=== PATIENT | female | born 1955 | race Caucasian/White ===

== ENCOUNTER → 2016-12-06 | Outpatient (CLI) | payer MEDICARE, OTHER ==
--- NOTE | 2016-12-06 13:41 | MM ---
Reason for exam: additional evaluation requested from prior study. Last mammogram was performed 1 year ago. History: Patient is postmenopausal and has history of breast cancer at age 38. Family history of breast cancer in mother at age 70. Benign right mammotome panel of the right breast, October 20, 2007. Benign right mammotome panel of the right breast, October 11, 2005. Excisional biopsy of the right breast, 2002. Excisional biopsy of the left breast, 2001. Radiation therapy of the left breast, 1993. Lumpectomy of the left breast. Chemotherapy. Taking other hormone for 14 years beginning at age 39. Physical Findings: Nurse did not find any significant physical abnormalities on exam. MG 3D Diag Mammo W/Cad DAVE Bilateral CC and MLO view(s) were taken. Prior study comparison: November 27, 2015, bilateral MG 3d diag mammo w/cad DAVE. October 09, 2014, bilateral MG diagnostic mammo w CAD DAVE. February 19, 2014, right breast US breast RT. The breast tissue is heterogeneously dense. This may lower the sensitivity of mammography. Previous mammotome biopsy within the right breast x2. Post surgical and post therapy changes left breast. Gradually increasing thick secretory calcifications. No significant new findings when compared with previous films. These results were verbally communicated with the patient and result sheet given to the patient on 12/06/16. ASSESSMENT: Benign, BI-RAD 2 RECOMMENDATION: Routine screening mammogram of both breasts in 1 year.
== END | disposition home or self-care (01) ==
LOC: RADMAMWWP 12:43
PROVIDERS: ATTEND Internal Medicine Hematology & Oncology
DX: Z85.3 Personal history of malignant neoplasm of breast (principal)
CPT/HCPCS: G0204; G0279

== ENCOUNTER → 2017-09-15 | Outpatient (CLI) | payer MEDICARE, OTHER ==
[2017-09-15 13:00] LABS: HCT 37.9 % (34.0-46.0); HGB 12.3 gm/dL (11.4-16.0); MCH 27.5 pg (25.0-35.0); MCHC 32.4 g/dL (31.0-37.0); Mean Platelet Volume 8.3; Platelet Count 227 k/uL (150-450); RBC 4.46 m/uL (3.80-5.40); RDW 13.8 % (11.5-15.5); WBC 6.1 k/uL (3.8-10.6)
[2017-09-15 13:27] LABS: Calcium 9.8 mg/dL (8.4-10.2); Potassium 5.2 mmol/L (3.5-5.1)
== END | disposition home or self-care (01) ==
LOC: LABWHC1 12:32
PROVIDERS: ATTEND Internal Medicine Interventional Cardiology
DX: I25.10 Atherosclerotic heart disease of native coronary artery without angina pectoris (principal); I10 Essential (primary) hypertension; E11.9 Type 2 diabetes mellitus without complications
CPT/HCPCS: 36415; 80048; 85027

== ENCOUNTER 2017-09-28 06:08 | Day surgery (SDC) | payer MEDICARE, OTHER ==
[2017-09-23 12:49] VITALS: BMI 29.7
[~2017-09-28 06:08] MED LIST: ALPRAZolam 0.25 MG TAB PO PRN; ALPRAZolam 0.5 MG TAB PO PRN; ASPIRIN 325 MG TAB PO STA; ATORVASTATIN 80 MG TAB PO STA; NITROGLYCERIN SL TABS 0.4 MG TAB SUBLINGUAL PRN; SODIUM CHLORIDE 0.9% 1,000 ML in EMPTY BAG 1 BAG IV ONE
[2017-09-28 06:34] VITALS: RESP 16; TEMP 98.6
[2017-09-28 06:46] LABS: Glucose,Whole Blood 226 mg/dL (75-99)
[2017-09-28] MEDS ORDERED: VERAPAMIL 2.5 MG/ML 2 ML AMP ONE (07:12)
[2017-09-28] MEDS ORDERED: LIDOCAINE 2% INJ 20 MG/ML (20 ML MDV) ONE (07:12)
[2017-09-28] MEDS ORDERED: diphenhydrAMINE 50 MG/ML 1 ML VIAL ONE (07:16)
[2017-09-28] MEDS ORDERED: MIDAZOLAM 2 MG/2 ML VIAL ONE (07:16)
[2017-09-28] MEDS ORDERED: HEPARIN SODIUM 1,000 UN/ML (10ML VL) ONE (07:16)
[2017-09-28] MEDS ORDERED: diphenhydrAMINE 50 MG/ML 1 ML VIAL IVP ONE (07:20)
[2017-09-28] MEDS ORDERED: MIDAZOLAM 2 MG/2 ML VIAL IVP ONE (07:20)
[2017-09-28] MEDS ORDERED: LIDOCAINE 2% INJ 20 MG/ML SQ ONE ×2 (07:35)
[2017-09-28] MEDS ORDERED: NITROGLYCERIN SL TABS 0.4 MG TAB SUBLINGUAL ONE ×2 (07:36→07:37)
[2017-09-28] MEDS: VERAPAMIL SYRINGE (5 MG/10 ML) INTRAARTER ONE ×2 (07:39→07:56)
[2017-09-28] MEDS: NITROGLYCERIN 1000MCG/10ML SYRINGE INTRACORON ONE ×2 (07:47→07:52)
[2017-09-28] MEDS ORDERED: amLODIPine 5 MG TAB ONE (07:56)
[2017-09-28] MEDS ORDERED: IOPAMIDOL-370 100ML BTL INJ ONE (07:56)
[2017-09-28] MEDS ORDERED: amLODIPine 5 MG TAB PO ONE (07:56)
[2017-09-28] MEDS ORDERED: RX INFO: IV CONTRAST WAS GIVEN 1 EACH MISC MISCELLANE PRN (07:59)
[2017-09-28] MEDS ORDERED: SODIUM CHLORIDE 0.9% 1,000 ML IV SCH (08:00)
[2017-09-28] MEDS ORDERED: ACETAMINOPHEN TAB 325 MG TAB ONE (08:09)
[2017-09-28 08:39] LABS: Glucose,Whole Blood 206 mg/dL (75-99)
--- NOTE | 2017-09-28 08:42 | LTR ---
DATE OF SERVICE: 09/28/2017 RE: Mara Newton Dear Dr. Gonzalez; Thank you for the opportunity to participate in the care of Mrs Newton. Please find enclosed my detailed cardiac cath report for your records. Will optimize medical therapy and discharge the patient later on today. Please find enclosed my report for your records. Thank you for your referral and please call for questions. With kindest regards. Sincerely yours, MD RAUDEL Arteaga / IVONNEN: [id number] /
--- NOTE | 2017-09-28 08:42 | CC ---
CARDIAC CATHETERIZATION REPORT DATE OF SERVICE: 09/28/2017 PROCEDURE: Left heart catheterization, coronary angiography. PERFORMED BY: Dr. Alfredo Chaudhary. Moderate conscious sedation time was 22 minutes. Patient's oxygen saturation, hemodynamic, and EKG were monitored closely. She was given a combination of Versed and Benadryl. CLINICAL INFORMATION: Mrs. Mara Newton is a 61-year-old lady with a known history of type 2 diabetes, hypertension, hyperlipidemia with noncritical CAD and a previous cath. Because of symptoms strongly suggestive of angina and known previous CAD of a moderate extent involving the LAD and circumflex, I recommended coronary angiography. She had symptoms with exertional chest discomfort and jaw discomfort. Symptoms were strongly suggestive of angina pectoris. Risks, benefits, options and rationale were explained. PROCEDURE NOTE: Under local anesthesia and strict aseptic precautions, a 6-Latvian introducer was placed in the right radial artery. Using an Ultimate 1 catheter, I performed selective coronary angiography of the left system and a JR 3.5 catheter for right coronary artery and the same catheter was used to check LV pressures. LV gram was not performed. The sheath was taken out and TR band applied as per protocol. Saturation in the fingers of the right hand was more than 95%. CARDIAC CATHETERIZATION FINDINGS: The left ventricular end-diastolic pressure was 22 mmHg without any gradient across the aortic valve. CORONARY ANGIOGRAPHY FINDINGS: 1. LEFT MAIN CORONARY ARTERY: A short patent disease-free vessel that bifurcates into LAD and circumflex. 2. LEFT ANTERIOR DESCENDING CORONARY ARTERY: This is a good caliber vessel that starts off in the proximal portion of a good caliber, gives off a septal branch and diagonal branch and then in the midportion, the caliber decreases with a 30%-35% narrowing. It then gives off a large diagonal branch and then continues after the diagonal branch all the way to the apex. The LAD after the diagonal branch is small in caliber, diffusely diseased with multiple areas of anywhere from 30% to 50% narrowing. These findings are very similar to the previous study from 2007. Maybe some more diffuse disease is noted. The diagonal branch is free of significant disease and also has minor irregularities. The distal half of LAD therefore has diffuse disease but no focal critical areas are noted. The septal branch is free of significant disease. 3. LEFT POSTERIOR CIRCUMFLEX CORONARY ARTERY: A nondominant vessel, gives off a single obtuse marginal that runs laterally, has about a 30% to 40% narrowing. No significant disease and no significant increase in the stenosis compared to the previous study from 2007. 4. :RIGHT CORONARY ARTERY: A dominant vessel, no significant disease, distally bifurcates into a large PLV, smaller PDA, both of which have minor irregularities. No significant disease is noted. RCA is a very dominant vessel. FINAL IMPRESSION: This patient has a right dominant system. Increased filling pressures. There is diffuse disease in the distal half of the left anterior descending artery. Circumflex has 30% to 40% narrowing. There is some progression of disease in the distal half of the left anterior descending artery, but not that significant. RECOMMENDATION: I am recommending aggressive medical therapy with risk factor modification and optimal BP control. I will increase the losartan to losartan HCTZ 100/25 one tablet daily and also check a BMP, CBC in about a week and I will see her in the office on October 06. The right radial site is clean and dry at the time of dictation, and she will be discharged in a few hours. MMODL / IJN: [id number] /
[2017-09-28 11:47] LABS: Glucose,Whole Blood 180 mg/dL (75-99)
[2017-09-28 15:09] VITALS: BP 162/76; PULSE 77
--- NOTE | 2017-09-30 17:38 | CDI ---
Outpatient Documentation Clarification Form Date: 09/30/17 CDS/Public Address Announcer Name: Yue Winston Phone: If any questions, call Katrin Siddiqi [employer]er at [phone] Patient Name: Mara Newton Admit Date: 09/28/17 Discharge Date: 09/28/17 ATTENTION: The [facility] Coding Staff appreciate your assistance in clarifying documentation. Please respond to the clarification below the line at the bottom and electronically sign. The [facility] Coding staff will review the response and follow-up if needed. Please note: Queries are made part of the Legal Health Record. If you have any questions, please contact the Rust [employer]er. Dear Dr. Jose Guadalupe Chaudhary, There is conflicting information on the H&P and operative report. Does the patient type 1 diabetes or type 2 diabetes? Please clarify below. Thank you for your kind consideration. Type 2 Diabetes. MTDD
== END 2017-09-28 15:09 | disposition home or self-care (01) ==
LOC: CATHCVL 06:08
PROVIDERS: ATTEND Internal Medicine Interventional Cardiology
DX: I25.110 Atherosclerotic heart disease of native coronary artery with unstable angina pectoris (principal); E78.00 Pure hypercholesterolemia, unspecified; E11.9 Type 2 diabetes mellitus without complications; I10 Essential (primary) hypertension; E03.9 Hypothyroidism, unspecified; Z82.49 Family history of ischemic heart disease and other diseases of the circulatory system; Z79.82 Long term (current) use of aspirin; Z79.890 Hormone replacement therapy; Z79.4 Long term (current) use of insulin; Z79.51 Long term (current) use of inhaled steroids; Z79.899 Other long term (current) drug therapy; Z88.6 Allergy status to analgesic agent; Z88.5 Allergy status to narcotic agent
CPT/HCPCS: 93458; C1894; J2001; J2250; J1200; Q9967

== ENCOUNTER → 2017-10-05 | Outpatient (CLI) | payer MEDICARE, OTHER ==
[2017-10-05 14:55] LABS: HCT 37.6 % (34.0-46.0); HGB 12.5 gm/dL (11.4-16.0); MCH 27.9 pg (25.0-35.0); MCHC 33.2 g/dL (31.0-37.0); MCV 84.1 fL (80.0-100.0); Platelet Count 244 k/uL (150-450); RBC 4.47 m/uL (3.80-5.40); RDW 13.7 % (11.5-15.5); WBC 6.2 k/uL (3.8-10.6)
[2017-10-05 15:10] LABS: Calcium 9.3 mg/dL (8.4-10.2)
== END | disposition home or self-care (01) ==
LOC: LABWHC1 14:32
PROVIDERS: ATTEND Internal Medicine Interventional Cardiology
DX: E11.9 Type 2 diabetes mellitus without complications (principal); I10 Essential (primary) hypertension; I25.10 Atherosclerotic heart disease of native coronary artery without angina pectoris
CPT/HCPCS: 36415; 80048; 85027

== ENCOUNTER → 2018-01-03 | Outpatient (CLI) | payer MEDICARE, OTHER ==
--- NOTE | 2018-01-04 09:27 | MM ---
Reason for exam: additional evaluation requested from prior study. Last mammogram was performed 1 year and 1 month ago. History: Patient is postmenopausal and has history of breast cancer at age 38. Family history of breast cancer in mother at age 70. Benign right mammotome panel of the right breast, October 20, 2007. Benign right mammotome panel of the right breast, October 11, 2005. Excisional biopsy of the right breast, 2002. Excisional biopsy of the left breast, 2001. Radiation therapy of the left breast, 1993. Lumpectomy of the left breast. Chemotherapy. Taking other hormone for 14 years beginning at age 39. Physical Findings: Nurse did not find any significant physical abnormalities on exam. MG 3D Diag Mammo W/Cad DAVE Bilateral CC and MLO view(s) were taken. Prior study comparison: December 06, 2016, bilateral MG 3d diag mammo w/cad DAVE. November 27, 2015, bilateral MG 3d diag mammo w/cad DAVE. The breast tissue is heterogeneously dense. This may lower the sensitivity of mammography. Finding: There are typically benign coarse calcifications in the left breast. Previous mammotome biopsy in the right breast. No significant changes in finding since December 06, 2016 and November 27, 2015. These results were verbally communicated with the patient and result sheet given to the patient on 01/03/18. ASSESSMENT: Benign, BI-RAD 2 RECOMMENDATION: Routine screening mammogram of both breasts in 1 year.
== END | disposition home or self-care (01) ==
LOC: RADMAMWWP 15:35
PROVIDERS: ATTEND Internal Medicine Hematology & Oncology
DX: Z08 Encounter for follow-up examination after completed treatment for malignant neoplasm (principal); Z85.3 Personal history of malignant neoplasm of breast
CPT/HCPCS: 77066; G0279; 77062

== ENCOUNTER → 2018-02-18 | Outpatient (CLI) | payer MEDICARE, OTHER ==
--- NOTE | 2018-02-19 10:10 | MR ---
EXAMINATION TYPE: MR cervical spine wo con DATE OF EXAM: 02/18/2018 COMPARISON: X-ray 09/25/2015 HISTORY: Neck pain arm pain TECHNIQUE: Multiplanar, multisequence images of the cervical spine were acquired. C2-C3: No evidence for degenerative disc disease. No disc bulge/herniation or protrusion. No Canal stenosis. Foramina are patent bilaterally. C3-C4: Severe degenerative disc disease with broad-based central disc protrusion abutting the anterio r margin of the spinal cord resulting in central canal stenosis. Facet arthropathy noted with mild bi lateral foraminal encroachment greater. C4-C5: Mild degenerative disc disease but there is a broad-based central and left paracentral disc he rniation resulting in mild anterior compression of the spinal cord. Ligamentum flavum hypertrophy is noted and there is mild facet arthropathy and uncovertebral joint hypertrophy with mild bilateral for aminal. C5-C6: Broad-based central disc protrusion resulting in anterior compression of spinal cord and moder ate to severe central stenosis. Facet arthropathy and uncovertebral joint hypertrophy can attribute m oderate to severe bilateral foraminal encroachment. There is severe degenerative disc disease. C6-C7: Small left paracentral disc herniation abuts the anterior margin of the spinal cord. Facet art hropathy is seen. Neural foramina remain patent. C7-T1: No evidence for degenerative disc disease. No disc bulge/herniation or protrusion. No Canal stenosis. Foramina are patent bilaterally. Cervical segments are intact. There is normal alignment. Cervical spinal cord is of normal signal. Craniovertebral junction relationships are within normal limits. IMPRESSION: 1. Severe multilevel degenerative disc disease. There is central canal stenosis at C3-4, C4-5 and C5- C6 as discussed above. 2. Broad-based disc herniation or protrusion abutting the anterior margin the spinal cord C3-C4. Face t arthropathy contributes to bilateral mild foraminal encroachment. 3. Broad-based central left paracentral disc herniation C4-C5 results in mild anterior compression of the spinal cord. 4. Broad-based central disc protrusion or herniation resulting in anterior compression of the spinal cord. 5. There is a small focal disc herniation C6-C7 abutting the anterior margin of the spinal cord.
== END | disposition home or self-care (01) ==
LOC: RADMRIMAIN 09:00
PROVIDERS: ATTEND Family Medicine
DX: M48.02 Spinal stenosis, cervical region (principal); M50.21 Other cervical disc displacement, high cervical region; M50.31 Other cervical disc degeneration, high cervical region; M46.92 Unspecified inflammatory spondylopathy, cervical region; G95.29 Other cord compression
CPT/HCPCS: 72141

== ENCOUNTER → 2018-03-11 | Outpatient (CLI) | payer MEDICARE, OTHER ==
--- NOTE | 2018-03-11 08:09 | MR ---
EXAMINATION TYPE: MR hip RT wo con DATE OF EXAM: 03/11/2018 7:58 AM COMPARISON: NONE HISTORY: Right hip pain TECHNIQUE: Multiplanar, multiecho imaging of the right hip is performed without IV contrast. FINDINGS: The uterus is anteverted. The ovaries are not definitely identified. Soft tissues of the pe lvis are otherwise unremarkable. There is no evidence of avascular necrosis. The joint space of the right hip is reasonably well-maint ained. No definite labral tear is identified. No fracture or other osseous lesion is seen. IMPRESSION: ESSENTIALLY NORMAL MRI OF THE LEFT HIP.
== END ==
LOC: RADMRIMAIN 07:02
PROVIDERS: ATTEND Family Medicine
DX: M16.11 Unilateral primary osteoarthritis, right hip (principal)

== ENCOUNTER → 2018-08-17 | Outpatient (CLI) | payer MEDICARE, OTHER ==
[2018-08-17 17:02] LABS: Albumin 4.2 g/dL (3.80-4.90); Albumin/Globulin Ratio 1.83 (1.60-3.17); Anion Gap 8.6 mmol/L (4.00-12.00); Calcium 9.4 mg/dL (8.7-10.3); Carbon Dioxide 23.4 mmol/L (21.6-31.8); Globulin 2.3 g/dL (1.6-3.3); Potassium 5.2 mmol/L (3.5-5.5); Total Protein 6.5 g/dL (6.2-8.2)
[2018-08-17 17:03] LABS: LDL Cholesterol,Calculated 67.2 mg/dL (0.0-131.0); VLDL Calculation 17.8 mg/dL (5.00-40.00)
== END | disposition home or self-care (01) ==
LOC: LABWHC1 09:13
PROVIDERS: ATTEND Internal Medicine Endocrinology, Diabetes & Metabolism
DX: E10.65 Type 1 diabetes mellitus with hyperglycemia (principal); E03.8 Other specified hypothyroidism
CPT/HCPCS: 36415; 80053; 80061; 82043; 82570; 84443; 84681

== ENCOUNTER → 2019-01-25 | Outpatient (CLI) | payer MEDICARE, OTHER ==
--- NOTE | 2019-01-25 14:09 | MM ---
Reason for exam: additional evaluation requested from prior study. Last mammogram was performed 1 year and 1 month ago. History: Patient is postmenopausal and has history of breast cancer at age 38. Family history of breast cancer in mother at age 70. Benign right mammotome panel of the right breast, October 20, 2007. Benign right mammotome panel of the right breast, October 11, 2005. Excisional biopsy of the right breast, 2002. Excisional biopsy of the left breast, 2001. Radiation therapy of the left breast, 1993. Lumpectomy of the left breast. Chemotherapy. Taking other hormone for 14 years beginning at age 39. Physical Findings: Nurse did not find any significant physical abnormalities on exam. MG 3D Diag Mammo W/Cad DAVE Bilateral CC and MLO view(s) were taken. Prior study comparison: January 03, 2018, bilateral MG 3d diag mammo w/cad DAVE. December 06, 2016, bilateral MG 3d diag mammo w/cad DAVE. The breast tissue is heterogeneously dense. This may lower the sensitivity of mammography. Benign appearing calcifications in the left breast. Post excisional biopsy change bilaterally. These results were verbally communicated with the patient and result sheet given to the patient on 01/25/19. ASSESSMENT: Benign, BI-RAD 2 RECOMMENDATION: Follow-up diagnostic mammogram of both breasts in 1 year.
== END ==
LOC: RADMAMWWP 12:56
PROVIDERS: ATTEND Internal Medicine Hematology & Oncology
DX: Z08 Encounter for follow-up examination after completed treatment for malignant neoplasm (principal); Z85.3 Personal history of malignant neoplasm of breast
CPT/HCPCS: 77066; G0279; 77062

== ENCOUNTER → 2019-07-04 | Outpatient (CLI) | payer MEDICARE, OTHER ==
[2019-07-04 16:39] LABS: African American GFR (CKD) 68.5 (60.0-200.0); Albumin 4.2 g/dL (3.80-4.90); Albumin/Globulin Ratio 2.1 (1.60-3.17); Anion Gap 6.4 mmol/L (4.00-12.00); Calcium 9.2 mg/dL (8.7-10.3); Carbon Dioxide 27.6 mmol/L (21.6-31.8); Chol/HDL Ratio 2.58; LDL Cholesterol,Calculated 70.6 mg/dL (0.0-131.0); Non-African American GFR(CKD) 59.1 (60.0-200.0); Potassium 4.9 mmol/L (3.5-5.5); Total Bilirubin 1.2 mg/dL (0.3-1.2); Total Protein 6.2 g/dL (6.2-8.2); VLDL Calculation 13.4 mg/dL (5.00-40.00)
[2019-07-04 18:05] LABS: Urine Creatinine 111.8 mg/dL
== END | disposition home or self-care (01) ==
LOC: LABWHC1 12:02
PROVIDERS: ATTEND Internal Medicine Endocrinology, Diabetes & Metabolism
DX: E10.65 Type 1 diabetes mellitus with hyperglycemia (principal)
CPT/HCPCS: 36415; 80053; 80061; 82043; 82570; 84443

== ENCOUNTER → 2020-02-08 | Outpatient (CLI) | payer MEDICARE, OTHER ==
[2020-02-08 20:34] LABS: Hemoglobin A1C 7.6 % (4.0-6.0)
[2020-02-08 22:16] LABS: Albumin/Globulin Ratio 1.74 (1.60-3.17); Anion Gap 6.6 mmol/L (4.00-12.00); Calcium 9.5 mg/dL (8.7-10.3); Carbon Dioxide 26.4 mmol/L (21.6-31.8); Chol/HDL Ratio 2.33; Globulin 2.3 g/dL (1.6-3.3); LDL Cholesterol,Calculated 60.4 mg/dL (0.0-131.0); Non-African American GFR(CKD) 58.7 (60.0-200.0); Potassium 4.1 mmol/L (3.5-5.5); Total Protein 6.3 g/dL (6.2-8.2); VLDL Calculation 15.6 mg/dL (5.00-40.00)
[2020-02-08 22:34] LABS: Urine Creatinine 141.9 mg/dL
== END | disposition home or self-care (01) ==
LOC: LABWHC1 10:54
PROVIDERS: ATTEND Internal Medicine Endocrinology, Diabetes & Metabolism
DX: E10.65 Type 1 diabetes mellitus with hyperglycemia (principal); E03.8 Other specified hypothyroidism
CPT/HCPCS: 36415; 80053; 80061; 82043; 82570; 83036; 84443

== ENCOUNTER → 2020-05-12 | Outpatient (CLI) | payer MEDICARE, OTHER ==
--- NOTE | 2020-05-12 15:05 | MM ---
Reason for exam: additional evaluation requested from prior study. Last mammogram was performed 1 year and 4 months ago. History: Patient is postmenopausal and has history of breast cancer at age 38. Family history of breast cancer in mother at age 70. Benign right mammotome panel of the right breast, October 20, 2007. Benign right mammotome panel of the right breast, October 11, 2005. Excisional biopsy of the right breast, 2002. Excisional biopsy of the left breast, 2001. Radiation therapy of the left breast, 1993. Lumpectomy of the left breast. Chemotherapy. Taking other hormone for 14 years beginning at age 39. Physical Findings: Nurse did not find any significant physical abnormalities on exam. MG 3D Diag Mammo W/Cad DAVE Bilateral CC and MLO view(s) were taken. Prior study comparison: January 25, 2019, bilateral MG 3d diag mammo w/cad DAVE. January 03, 2018, bilateral MG 3d diag mammo w/cad DAVE. The breast tissue is heterogeneously dense. This may lower the sensitivity of mammography. Extensive calcifications left breast are stable. Stable post operative changes left breast. No significant new findings when compared with previous films. These results were verbally communicated with the patient and result sheet given to the patient on 05/12/20. ASSESSMENT: Benign, BI-RAD 2 RECOMMENDATION: Follow-up diagnostic mammogram of both breasts in 1 year.
== END | disposition home or self-care (01) ==
LOC: RADMAMWWP 13:36
PROVIDERS: ATTEND Internal Medicine Hematology & Oncology
DX: Z08 Encounter for follow-up examination after completed treatment for malignant neoplasm (principal); Z85.3 Personal history of malignant neoplasm of breast
CPT/HCPCS: 77066; G0279; 77062

== ENCOUNTER → 2021-01-28 | Outpatient (CLI) | payer MEDICARE, OTHER ==
[2021-01-28 22:01] LABS: Microalbumin Creatinine Ratio <30 mg/g Creat (0-30); Urine Creatinine 62.5 mg/dL
[2021-01-28 22:45] LABS: Hemoglobin A1C 7.8 % (4.0-6.0)
[2021-01-29 01:42] LABS: African American GFR (CKD) 67.5 (60.0-200.0); Albumin 4.2 g/dL (3.80-4.90); Albumin/Globulin Ratio 1.83 (1.60-3.17); Calcium 9.9 mg/dL (8.7-10.3); Chol/HDL Ratio 2.33; Globulin 2.3 g/dL (1.6-3.3); Non-African American GFR(CKD) 58.2 (60.0-200.0); Potassium 4.9 mmol/L (3.5-5.5); Total Bilirubin 0.8 mg/dL (0.3-1.2); Total Protein 6.5 g/dL (6.2-8.2)
== END | disposition home or self-care (01) ==
LOC: LABWHC1 11:06
PROVIDERS: ATTEND Internal Medicine Endocrinology, Diabetes & Metabolism
DX: E10.65 Type 1 diabetes mellitus with hyperglycemia (principal)
CPT/HCPCS: 36415; 80053; 80061; 82043; 82570; 83036; 84443

== ENCOUNTER → 2021-08-12 | Outpatient (CLI) | payer MEDICARE, OTHER ==
--- NOTE | 2021-08-12 10:56 | MM ---
Reason for exam: additional evaluation requested from prior study. Last mammogram was performed 1 year and 3 months ago. History: Patient is postmenopausal and has history of breast cancer at age 38. Family history of breast cancer in mother at age 70. Benign right mammotome panel of the right breast, October 20, 2007. Benign right mammotome panel of the right breast, October 11, 2005. Excisional biopsy of the right breast, 2002. Excisional biopsy of the left breast, 2001. Radiation therapy of the left breast, 1993. Lumpectomy of the left breast. Chemotherapy. Taking other hormone for 14 years beginning at age 39. Physical Findings: A clinical breast exam by your physician is recommended on an annual basis and results should be correlated with mammographic findings. MG 3D Diag Mammo W/Cad DAVE Bilateral CC and MLO view(s) were taken. Prior study comparison: May 12, 2020, bilateral MG 3d diag mammo w/cad DAVE. January 25, 2019, bilateral MG 3d diag mammo w/cad DAVE. The breast tissue is extremely dense which could obscure a lesion on mammography. Stable ductal calcifications in the left breast. There is no discrete abnormality. No significant new findings when compared with previous films. These results were verbally communicated with the patient and result sheet given to the patient on 08/12/21. ASSESSMENT: Benign, BI-RAD 2 RECOMMENDATION: Follow-up diagnostic mammogram of both breasts in 1 year.
== END | disposition home or self-care (01) ==
LOC: RADMAMWWP 10:10
PROVIDERS: ATTEND Internal Medicine Hematology & Oncology
DX: Z08 Encounter for follow-up examination after completed treatment for malignant neoplasm (principal); Z85.3 Personal history of malignant neoplasm of breast
CPT/HCPCS: 77066; G0279; 77062

== ENCOUNTER → 2022-08-13 | Outpatient (CLI) | payer MEDICARE, OTHER ==
--- NOTE | 2022-08-16 18:45 | MM ---
Reason for Exam: Screening (asymptomatic). Last screening mammogram was performed 12 month(s) ago. Patient History: Menarche at age 11. First Full-Term at age 16. Left ovary removed at age 51. Right ovary removed at age 51. Hysterectomy at age 51. Postmenopausal. Breast cancer, left, age 38. 2002, Excisional Biopsy on the Right side. 2001, Excisional Biopsy on the Left side. Lumpectomy on the Left side. 10/20/2007, Benign Core Biopsy on the right side. 10/11/2005, Benign Core Biopsy on the right side. 1993, Radiation Therapy on the left side. Chemotherapy. Mother had breast cancer, age 70. Prior Study Comparison: 01/25/2019 Bilateral Diagnostic Mammogram, [facility]. 05/12/2020 Bilateral Diagnostic Mammogram, [facility]. 08/12/2021 Bilateral Diagnostic Mammogram, [facility]. Tissue Density: The breast tissue is heterogeneously dense. This may lower the sensitivity of mammography. Findings: Analyzed By CAD. Chronic postsurgical and posttreatment changes left breast. Extensive fat necrosis calcifications on this side. Benign vascular calcifications on the right. 2 microclips from prior biopsies. No significant change from prior exams. Overall Assessment: Benign, BI-RAD 2 Management: Screening Mammogram of both breasts in 1 year. 1. Patient should continue monthly self breast exams. 2. A clinical breast exam by your physician is recommended on an annual basis. 3. This exam should not preclude additional follow-up of suspicious palpable abnormalities. Electronically signed and approved by: Dusty Jovel M.D. Radiologist
== END | disposition home or self-care (01) ==
LOC: RADMAMWWP 12:55
PROVIDERS: ATTEND Internal Medicine Hematology & Oncology
DX: Z12.31 Encounter for screening mammogram for malignant neoplasm of breast (principal); Z78.0 Asymptomatic menopausal state; Z80.3 Family history of malignant neoplasm of breast
CPT/HCPCS: 77063; 77067

== ENCOUNTER → 2022-11-05 | Outpatient (CLI) | payer MEDICARE, OTHER ==
[2022-11-06 02:47] LABS: Chol/HDL Ratio 2.49 Ratio; LDL Cholesterol,Calculated 84.8 mg/dL (0.0-131.0); VLDL Calculation 17.02 mg/dL (5.00-40.00)
[2022-11-06 02:56] LABS: ALT 19 U/L (8-44); AST 18 U/L (13-35); Albumin 4.2 d/dL (3.8-4.9); Albumin/Globulin Ratio 1.62 Ratio (1.60-3.17); Alkaline Phosphatase 89 U/L (41-126); BUN/Creat Ratio 14.18 Ratio (12.00-20.00); Blood Urea Nitrogen 15.6 mg/dL (9.0-27.0); Calcium 9.8 mg/dL (8.7-10.3); Carbon Dioxide 24.8 mmol/L (21.6-31.8); Chloride 106 mmol/L (96-109); Globulin 2.6 d/dL (1.6-3.3); Glucose 128 mg/dL (70-110); Potassium 4.4 mmol/L (3.5-5.5); Sodium 142 mmol/L (135-145); Total Protein 6.8 d/dL (6.2-8.2)
[2022-11-06 04:56] LABS: Microalbumin Creatinine Ratio <8 mg/g Cr (0-30)
== END | disposition home or self-care (01) ==
LOC: LABWHC1 11:25
PROVIDERS: ATTEND Internal Medicine Endocrinology, Diabetes & Metabolism
DX: E10.65 Type 1 diabetes mellitus with hyperglycemia (principal)
CPT/HCPCS: 36415; 80053; 80061; 82043; 82570; 83036; 84443

== ENCOUNTER → 2023-12-20 | Outpatient (CLI) | payer MEDICARE, OTHER ==
--- NOTE | 2023-12-20 10:10 | US ---
EXAMINATION TYPE: US abdomen complete DATE OF EXAM: 12/20/2023 COMPARISON: CT 2013 CLINICAL INDICATION: Female, 68 years old with history of R10.9 UNSPECIFIED ABDOMINAL PAIN; Epigastri c pain x 3 weeks. Hx kidney stones. TECHNIQUE: Multiple sonographic images of the abdomen are obtained. FINDINGS: EXAM MEASUREMENTS: Liver Length: 14.0 cm Gallbladder Wall: 0.14 cm CBD: 0.75 cm Spleen: 10.1 cm Right Kidney: 9.9 x 4.6 x 4.1 cm Left Kidney: 10.2 x 4.7 x 4.6 cm ASSOCIATE DEAN NOTES: Exam is very limited due to gas. Pancreas: Not well seen. Liver: *Appears coarse in echotexture. Gallbladder: Limited due to gas. Evidence for sonographic Padilla's sign: No CBD: *Dilated. Spleen: Appers wnl Right Kidney: No hydronephrosis or masses seen, limited due to rib shadow. Left Kidney: 2 hyperechoic foci seen. #1 seen laterally measures: 0.4 x 0.5 x 0.3 cm. #2 seen medially measures: 0.8 x 0.7 x 0.5 cm. Upper IVC: Appears wnl Abd Aorta: Portions seen appear wnl. Slightly limited visibility. Iliac arteries were obscured. IMPRESSION: 1.Coarse echotexture which may reflect hepatic steatosis. 2. Limited gallbladder evaluation with dilatation of the common bile duct. 3. Nonobstructing nephrolithiasis left kidney.
== END | disposition home or self-care (01) ==
LOC: RADUSWWP 09:23
PROVIDERS: ATTEND Family Medicine
DX: N20.0 Calculus of kidney (principal); K83.8 Other specified diseases of biliary tract
CPT/HCPCS: 76700

== ENCOUNTER → 2024-01-05 | Outpatient (CLI) | payer MEDICARE, OTHER ==
--- NOTE | 2024-02-15 13:16 | NM ---
Site ID [facility] Patient Mara Newton ID [id number] Order # Procedure Hepatobiliary EXAMINATION TYPE: NM hepatobiliary w EF DATE OF EXAM: 01/13/2024 1:33 PM COMPARISON: THIS EXAM WAS READ DURING PACS DOWNTIME, NO PRIORS AVAILABLE. CLINICAL INDICATION:k.838 Dashawn. duct dilation TECHNIQUE: The patient was given 5.06 mCi of Technetium 99m-Mebrofenin as a radiotracer and multiple scintigraphic images were obtained of the abdomen. Gallbladder function was also assessed after the administration of ensure drink and additional scintigraphic images were obtained of the abdomen. A re gion of interest was drawn over the gallbladder and a timing activity curve was generated. The gallbl adder ejection fraction was calculated. FINDINGS: Normal uptake of radiotracer was identified within the liver with excretion into the hepatic and comm on biliary ducts within 240 seconds. There was normal progressive washout of the liver over the cours e of the study. Radiotracer uptake within the gallbladder at 8 minutes as well as small bowel activit y was identified at 12 minutes. Maximum calculated gallbladder ejection fraction is: 48% at 30 minutes (Normal gallbladder ejection fraction is > 35%) IMPRESSION: 1. Normal hepatobiliary scan. 2. Normal ejection fraction.
== END | disposition home or self-care (01) ==
LOC: RADNMMAIN 07:00
PROVIDERS: ATTEND Family Medicine
DX: K83.8 Other specified diseases of biliary tract (principal)
CPT/HCPCS: 78226; A9537

== ENCOUNTER → 2024-03-15 | Outpatient (CLI) | payer MEDICARE, OTHER ==
[2024-03-15 15:38] LABS: ALT 20 U/L (8-44); AST 25 U/L (13-35); Albumin/Globulin Ratio 1.74 Ratio (1.60-3.17); Alkaline Phosphatase 110 U/L (41-126); BUN/Creat Ratio 17.09 Ratio (12.00-20.00); Blood Urea Nitrogen 18.8 mg/dL (9.0-27.0); Calcium 9.2 mg/dL (8.7-10.3); Carbon Dioxide 26.6 mmol/L (21.6-31.8); Chloride 104 mmol/L (96-109); Chol/HDL Ratio 2.71 Ratio; Globulin 2.3 g/dL (1.6-3.3); Glucose 129 mg/dL (70-110); LDL Cholesterol,Calculated 75.9 mg/dL (0.0-131.0); Potassium 4.1 mmol/L (3.5-5.5); Sodium 141 mmol/L (135-145); Total Bilirubin 0.5 mg/dL (0.3-1.2); Total Protein 6.3 g/dL (6.2-8.2); VLDL Calculation 18.08 mg/dL (5.00-40.00)
[2024-03-15 21:17] LABS: Microalbumin Creatinine Ratio <6 mg/g Cr (0-30)
== END | disposition home or self-care (01) ==
LOC: LABWHC1 09:11
PROVIDERS: ATTEND Internal Medicine Endocrinology, Diabetes & Metabolism
DX: E10.65 Type 1 diabetes mellitus with hyperglycemia (principal)
CPT/HCPCS: 36415; 80053; 80061; 82043; 82570; 83036; 84443

== ENCOUNTER → 2024-08-09 | Outpatient (CLI) | payer MEDICARE, OTHER ==
[2024-08-09 15:11] LABS: ALT 11 U/L (8-44); AST 15 U/L (13-35); Albumin 3.8 g/dL (3.8-4.9); Alkaline Phosphatase 111 U/L (41-126); Blood Urea Nitrogen 12.4 mg/dL (9.0-27.0); Calcium 9.1 mg/dL (8.7-10.3); Carbon Dioxide 27.7 mmol/L (21.6-31.8); Chloride 106 mmol/L (96-109); Glucose 260 mg/dL (70-110); LDL Cholesterol,Calculated 68.4 mg/dL (0.0-131.0); Potassium 3.9 mmol/L (3.5-5.5); Sodium 143 mmol/L (135-145); Total Bilirubin 0.6 mg/dL (0.3-1.2); Total Protein 5.8 g/dL (6.2-8.2); VLDL Calculation 14.14 mg/dL (5.00-40.00)
== END | disposition home or self-care (01) ==
LOC: LABWHC1 09:55
PROVIDERS: ATTEND Internal Medicine Endocrinology, Diabetes & Metabolism
DX: E10.65 Type 1 diabetes mellitus with hyperglycemia (principal); E03.8 Other specified hypothyroidism
CPT/HCPCS: 36415; 80053; 80061; 82043; 82570; 83036; 84443

== ENCOUNTER → 2024-11-09 | Outpatient (CLI) | payer MEDICARE, OTHER ==
--- NOTE | 2024-11-09 13:39 | MM ---
Reason for Exam: Screening (asymptomatic). Last mammogram was performed 2 year(s) and 3 month(s) ago. Patient History: Menarche at age 11. First Full-Term at age 16. Left ovary removed at age 51. Right ovary removed at age 51. Hysterectomy at age 51. Postmenopausal. Breast cancer, left, age 38. 2002, Excisional Biopsy on the Right side. 2001, Excisional Biopsy on the Left side. Lumpectomy on the Left side. 10/20/2007, Benign Core Biopsy on the right side. 10/11/2005, Benign Core Biopsy on the right side. 1993, Radiation Therapy on the left side. Chemotherapy. Mother had breast cancer, age 70. Prior Study Comparison: 05/12/2020 Bilateral Diagnostic Mammogram, [facility]. 08/12/2021 Bilateral Diagnostic Mammogram, [facility]. 08/13/2022 Bilateral MG 3D screening mammo w/cad, [facility]. Tissue Density: The breasts are heterogeneously dense, which may obscure small masses. Findings: Analyzed By CAD. There is no suspicious group of microcalcifications or new suspicious mass in either breast. Postsurgical change involving the left breast with dystrophic calcifications stable in appearance. Surgical clip right breast. Overall Assessment: Benign, BI-RAD 2 Management: Screening Mammogram of both breasts in 1 year. . Patient should continue monthly self-breast exams. A clinical breast exam by your physician is recommended on an annual basis. This exam should not preclude additional follow-up of suspicious palpable abnormalities. Note on Kirsten scores and lifetime risk: 1. A Kirsten score greater than 3% is considered moderate risk. If this is the case, consider specialist referral to assess eligibility for a risk reducing agent. 2. If overall lifetime risk for the development of breast cancer is 20% or higher, the patient may qualify for future screening with alternating mammogram and breast MRI. [facility], , 11/09/2024 1:36 PM. Electronically signed and approved by: Andrew Raza M.D. Radiologis
--- NOTE | 2024-11-09 13:39 | BD ---
EXAMINATION TYPE: Axial Bone Density DATE OF EXAM: 11/09/2024 CLINICAL HISTORY: 69 years old Female. ICD-10 CODE: Z78.0 Postmenopausal , Additional History: Height: 64 Weight: 173 FRAX RISK QUESTIONS: Family History (Parent hip fracture): no History of Fracture in Adulthood: yes Secondary Osteoporosis: yes 1. Type 1 Diabetes: yes 3. Menopause before 45: yes @38 RISK FACTORS HISTORY OF: Surgery to Spine/Hip(right/left)/Wrist (right/left): no MEDICATIONS: Thyroid Medications: yes Which medication: Synthroid How Lon+ years Osteoporosis Medications: no EXAM MEASUREMENTS: Bone mineral densitometry was performed using the [employer]. Bone mineral density as measured about the Lumbar spine is: ----- L1-L4(G/cm2): 0.972 T Score Values are as follows: ----- L1: -1.7 ----- L2: -2.9 ----- L3: -1.1 ----- L4: -1.5 ----- L1-L4: -1.7 Z Score Values are as follows: ----- L1: -0.5 ----- L2: -1.6 ----- L3: 0.1 ----- L4: -0.3 ----- L1-L4: -0.5 Bone mineral density has: Decreased -16.9% since study of: 11/23/2006 Bone mineral density about the R hip (g/cm2): 0.799 Bone mineral density about the L hip (g/cm2): 0.801 T Score values are as follows: -----R Neck: -1.7 -----L Neck: -1.9 -----R Total: -1.7 -----L Total: -1.6 Z Score values are as follows: -----R Neck: -0.3 -----L Neck: -0.5 -----R Total: -0.5 -----L Total: -0.4 Bone mineral density has: Decreased -6.7% since study of: 11/23/2006 FRAX%s: The graph provided illustrates a 17.8% chance for a major osteoporotic fx and a 3.3% chance f or the hips probability for fx in 10 years time. IMPRESSION: Osteoporosis (T Score less than -2.5). There is increased fracture risk and therapy is usually indicated based on age. Re-Screen 1-2 years. NOTE: T-SCORE=SD OF THE YOUNG ADULT MEAN. [facility], , 11/09/2024 1:37 PM
== END | disposition home or self-care (01) ==
LOC: RADBDWWP 12:15
PROVIDERS: ATTEND Family Medicine
DX: Z12.31 Encounter for screening mammogram for malignant neoplasm of breast (principal); R92.333 Mammographic heterogeneous density, bilateral breasts; M85.89 Other specified disorders of bone density and structure, multiple sites; Z78.0 Asymptomatic menopausal state; Z85.3 Personal history of malignant neoplasm of breast; Z80.3 Family history of malignant neoplasm of breast
CPT/HCPCS: 77063; 77067; 77080